=== PATIENT | female | born 1990 ===

== ENCOUNTER 2019-03-29 07:17 | Emergency (ER) | payer OTHER ==
[~2019-03-29] VITALS: Ht 154.9 cm; Wt 52.6 kg
[2019-03-29] MEDS ORDERED: LEVAQUIN500 MG PO (08:49)
== END 2019-03-29 09:02 | disposition home or self-care (01) ==
LOC: ER 07:17
DX: S61.217A Laceration without foreign body of left little finger without damage to nail, initial encounter (principal); S61.218A Laceration without foreign body of other finger without damage to nail, initial encounter; W45.8XXA Other foreign body or object entering through skin, initial encounter; Y93.89 Activity, other specified; Y92.89 Other specified places as the place of occurrence of the external cause; Y99.8 Other external cause status

== ENCOUNTER 2020-01-04 09:04 | Outpatient (CLI) | payer OTHER ==
[~2020-01-04 09:04] MED LIST: LEVAQUIN500 MG PO
== END 2020-01-04 09:13 | disposition home or self-care (01) ==
LOC: SONOGRAMA 09:04
PROVIDERS: ATTEND Obstetrics & Gynecology
DX: N64.4 Mastodynia (principal); N63.0 Unspecified lump in unspecified breast

== ENCOUNTER 2020-01-18 09:32 | Outpatient (CLI) | payer OTHER | END 2020-01-18 09:54 | disposition home or self-care (01) | LOC: SONOGRAMA 09:32 | PROVIDERS: ATTEND General Practice | DX: N20.0 Calculus of kidney (principal); R10.84 Generalized abdominal pain; R50.9 Fever, unspecified ==

== ENCOUNTER 2023-02-04 15:12 | Outpatient (CLI) | payer OTHER | END 2023-02-04 15:28 | disposition home or self-care (01) | LOC: SONOGRAMA 15:12 | PROVIDERS: ATTEND Obstetrics & Gynecology | DX: N63.0 Unspecified lump in unspecified breast (principal); N64.4 Mastodynia; M25.469 Effusion, unspecified knee ==